=== PATIENT | female | born 1990 | race Asian ===

== ENCOUNTER → 2018-03-31 | Outpatient (CLI) | payer OTHER ==
[2013-12-31 13:35] VITALS: BP 124/75
[~2018-03-31] MED LIST: OXYC1TAB15 PO; PNV1TABL25 PO
--- NOTE | 2018-03-31 11:44 | RAD ---
Obstetrical ultrasound, 03/31/2018: HISTORY: Size/date discrepancy There is a single intrauterine fetus in a cephalic orientation. The biparietal diameter measures 6.1 cm compatible with a gestational age of 25 weeks. The femur length measurement suggests a gestational age of 23-24 weeks. The average gestational age based on all of the measurements is 24 weeks and 2 days yielding a sonographic EDC of 07/19/2018. Normal activity and heart motion were seen. The heart rate is 137 bpm. A four-chamber heart is evident. Fluid is seen in the bladder and stomach. The visualized portions of the spine and kidneys are unremarkable. A three-vessel umbilical cord is evident with a normal cord insertion site. A normal amount of amniotic fluid is present. The placenta lies posteriorly with no evidence of placenta previa. The cervix was not clearly visualized, however, the cervical length was estimated at 3.5 cm. IMPRESSION: Single viable intrauterine fetus of 24-25 weeks gestational age as described above. Electronically signed by: Vlad Nava MD (03/31/2018 11:40 AM) [facility]
== END | disposition home or self-care (01) ==
LOC: US 10:30
PROVIDERS: ATTEND Obstetrics & Gynecology
DX: O34.212 Maternal care for vertical scar from previous cesarean delivery (principal); O26.842 Uterine size-date discrepancy, second trimester; Z3A.25 25 weeks gestation of pregnancy
CPT/HCPCS: 76805

== ENCOUNTER 2020-03-21 03:28 | Emergency (ER) | payer BC, OTHER ==
[~2020-03-21] VITALS: Ht 160 cm; Wt 59.1 kg
[~2020-03-21 03:28] MED LIST changes: +IBUP-1027 PO
[2020-03-21 03:58] LABS: BASO % 1 % (0-3); EOS % 0 % (0-3); HEMATOCRIT 39.1 % (36.0-47.0); HEMOGLOBIN 12.7 g/dL (12.0-15.5); LYMPH # 2.6 x10^3/uL (1.0-4.8); LYMPH % 52 % (24-48); MEAN CORPUSCULAR HEMOGLOBIN 25 pg (25-35); MEAN CORPUSCULAR HGB CONC 32 g/dL (31-37); MEAN CORPUSCULAR VOLUME 77 fL (79-100); MONO # 0.5 x10^3/uL (0.0-1.1); MONO % 9 % (0-9); NEUT % 39 % (31-73); PLATELET COUNT 225 x10^3/uL (140-400); RED BLOOD COUNT 5.11 x10^6/uL (3.50-5.40); RED CELL DISTRIBUTION WIDTH 14.4 % (11.5-14.5); WHITE BLOOD COUNT 5.1 x10^3/uL (4.0-11.0)
[2020-03-21 04:05] LABS: CALCIUM 8.9 mg/dL (8.5-10.1); CREATININE 0.7 mg/dL (0.6-1.0); GFR 98.3; POTASSIUM 3.6 mmol/L (3.5-5.1)
[2020-03-21 04:11] LABS: ALBUMIN 3.5 g/dL (3.4-5.0); ALBUMIN/GLOBULIN RATIO 0.8 (1.0-1.7); TOTAL BILIRUBIN 0.2 mg/dL (0.2-1.0)
[2020-03-21] MEDS ORDERED: CONTRAST GIVEN. MC PRN (04:15)
[2020-03-21 04:16] LABS: BILIRUBIN,URINE NEGATIVE (NEG); CLARITY,URINE CLEAR; COLOR,URINE YELLOW; NITRITE,URINE NEGATIVE (NEG); PROTEIN,URINE NEGATIVE (NEG-TRACE); UROBILINOGEN,URINE 0.2 mg/dL (0.2 mg/dL)
--- NOTE | 2020-03-21 04:20 | PHYS DOC ---
Past Medical History Past Medical History: No Pertinent History Past Surgical History: Smoking Status: Never Smoker Alcohol Use: Occasionally General Adult EDM: Chief Complaint: ABDOMINAL PAIN HPI: HPI: Patient is a 29 year old female with no past medical history presents with chief complaint of abdominal pain. Patient states abdominal pain started around 010 0 hours. Patient pain is primarily left lower quadrant but pain is elicited palpating entire abdomen. Patient denies any nausea vomiting or diarrhea. She denies any urinary issues such as frequency urgency urination or vaginal discharge. Patient last menstrual period was 3 days ago. Review of Systems: Review of Systems: Constitutional: Denies fever or chills. [] Eyes: Denies change in visual acuity. [] HENT: Denies nasal congestion or sore throat. [] Respiratory: Denies cough or shortness of breath. [] Cardiovascular: Denies chest pain or edema. [] GI: Denies , nausea, vomiting, bloody stools or diarrhea. [Positive abdominal pain] : Denies dysuria. [] Musculoskeletal: Denies back pain or joint pain. [] Integument: Denies rash. [] Neurologic: Denies headache, focal weakness or sensory changes. [] Endocrine: Denies polyuria or polydipsia. [] Lymphatic: Denies swollen glands. [] Psychiatric: Denies depression or anxiety. [] Heart Score: Risk Factors: Risk Factors: DM, Current or recent (<one month) smoker, HTN, HLP, family history of CAD, obesity. Risk Scores: Score 0 - 3: 2.5% MACE over next 6 weeks - Discharge Home Score 4 - 6: 20.3% MACE over next 6 weeks - Admit for Clinical Observation Score 7 - 10: 72.7% MACE over next 6 weeks - Early Invasive Strategies Current Medications: Current Medications Medications (Trade) Dose Ordered Sig/Mohsen Start Time Stop Time Status Last Admin Dose Admin Info (CONTRAST GIVEN -- Rx MONITORING) 1 each PRN DAILY PRN 03/21/20 04:15 03/23/20 04:14 Iohexol (Omnipaque 300 Mg/ml) 75 ml 1X ONCE 03/21/20 04:30 03/21/20 04:31 Morphine Sulfate (Morphine Sulfate) 2 mg 1X ONCE 03/21/20 04:30 03/21/20 04:31 03/21/20 03:55 2 MG Sodium Chloride 1,000 ml @ 1,000 mls/hr 1X ONCE 03/21/20 04:30 03/21/20 05:29 03/21/20 03:55 1,000 MLS/HR Allergies: Allergies: Allergies Coded Allergies Type Severity Reaction Last Updated Verified No Known Drug Allergies 12/30/13 No Physical Exam: PE: Constitutional: Well developed, well nourished, no acute distress, non-toxic appearance. [] HENT: Normocephalic, atraumatic, bilateral external ears normal, oropharynx moist, no oral exudates, nose normal. [] Eyes: PERRLA, EOMI, conjunctiva normal, no discharge. [] Neck: Normal range of motion, no tenderness, supple, no stridor. [] Cardiovascular:Heart rate regular rhythm, no murmur [] Lungs & Thorax: Bilateral breath sounds clear to auscultation [] Abdomen: Bowel sounds normal, soft, tenderness to palpation multiple quadrants. No tenderness to palpation right lower quadrant Skin: Warm, dry, no erythema, no rash. [] Back: No tenderness, no CVA tenderness. [] Extremities: No tenderness, no cyanosis, no clubbing, ROM intact, no edema. [] Neurologic: Alert and oriented X 3, normal motor function, normal sensory function, no focal deficits noted. [] Psychologic: Affect normal, judgement normal, mood normal. [] Current Patient Data: Labs: Laboratory Tests Test 03/21/20 03:45 03/21/20 04:11 White Blood Count 5.1 x10^3/uL (4.0-11.0) Red Blood Count 5.11 x10^6/uL (3.50-5.40) Hemoglobin 12.7 g/dL (12.0-15.5) Hematocrit 39.1 % (36.0-47.0) Mean Corpuscular Volume 77 fL (79-100) L Mean Corpuscular Hemoglobin 25 pg (25-35) Mean Corpuscular Hemoglobin Concent 32 g/dL (31-37) Red Cell Distribution Width 14.4 % (11.5-14.5) Platelet Count 225 x10^3/uL (140-400) Neutrophils (%) (Auto) 39 % (31-73) Lymphocytes (%) (Auto) 52 % (24-48) H Monocytes (%) (Auto) 9 % (0-9) Eosinophils (%) (Auto) 0 % (0-3) Basophils (%) (Auto) 1 % (0-3) Neutrophils # (Auto) 2.0 x10^3/uL (1.8-7.7) Lymphocytes # (Auto) 2.6 x10^3/uL (1.0-4.8) Monocytes # (Auto) 0.5 x10^3/uL (0.0-1.1) Eosinophils # (Auto) 0.0 x10^3/uL (0.0-0.7) Basophils # (Auto) 0.0 x10^3/uL (0.0-0.2) Sodium Level 137 mmol/L (136-145) Potassium Level 3.6 mmol/L (3.5-5.1) Chloride Level 103 mmol/L (98-107) Carbon Dioxide Level 28 mmol/L (21-32) Anion Gap 6 (6-14) Blood Urea Nitrogen 6 mg/dL (7-20) L Creatinine 0.7 mg/dL (0.6-1.0) Estimated GFR (Cockcroft-Gault) 98.3 BUN/Creatinine Ratio 9 (6-20) Glucose Level 128 mg/dL (70-99) H Calcium Level 8.9 mg/dL (8.5-10.1) Total Bilirubin 0.2 mg/dL (0.2-1.0) Aspartate Amino Transferase (AST) 227 U/L (15-37) H Alanine Aminotransferase (ALT) 121 U/L (14-59) H Alkaline Phosphatase 52 U/L (46-116) Total Protein 8.0 g/dL (6.4-8.2) Albumin 3.5 g/dL (3.4-5.0) Albumin/Globulin Ratio 0.8 (1.0-1.7) L Lipase 140 U/L (73-393) POC Urine HCG, Qualitative Hcg negative (Negative) Laboratory Tests 03/21/20 03:45 Laboratory Tests 03/21/20 03:45 Vital Signs: Vital Signs Date Time Temp Pulse Resp B/P (MAP) Pulse Ox O2 Delivery O2 Flow Rate FiO2 03/21/20 03:55 98 03/21/20 03:30 98.2 89 20 126/85 (99) Room Air 98.2 EKG: EKG: [] Radiology/Procedures: Radiology/Procedures: [] Impression: FINDINGS: Abdominal aorta is not aneurysmal. Liver is low density which can be seen with fatty infiltration. No peripancreatic fluid collection. Calcification within the duodenum. Spleen unremarkable. Urinary bladder is partially distended. Right-sided hydronephrosis and hydroureter without a definite radiopaque obstructive ureter stone seen. Uterus is visualized. No periappendiceal inflammatory changes. No dilated loops of bowel to suggest obstruction. Degenerative changes of the spine. IMPRESSION: * No evidence of bowel obstruction or appendicitis. * Right-sided hydronephrosis and hydroureter without a definite radiopaque obstructive ureter stone seen at this time. Some possible causes would include a recently passed ureter stone or nonradiopaque stone. * Fatty infiltration of the liver Course & Med Decision Making: Course & Med Decision Making Patient was evaluated for chief complaint. Work-up consisted of laboratory analysis and radiologic imaging. Results reviewed and discussed with patient and significant other. Pain treated with morphine IV fluids. Pain improved post treatment. Radiologist impression hydronephrosis hydroureter no radiopaque stone identified. Patient's urine without signs of infection or RBCs. Patient be discharged home on Flomax and hydrocodone. Dragon Disclaimer: DragPicApp Disclaimer: This electronic medical record was generated, in whole or in part, using a voice recognition dictation system. Departure Departure Impression: Primary Impression: Abdominal pain Additional Impression: Hydronephrosis Disposition: 01 [place] HOME SELF CARE/HOMELESS Condition: STABLE Referrals: NO PCP (PCP) Patient Instructions: Abdominal Migraine, Hydronephrosis Scripts Tamsulosin Hcl (FLOMAX) 0.4 Mg Cap.er.24h 0.4 MG PO DAILY for 7 Days, #7 TAB Prov: LIZET NATION I DO 03/21/20 Hydrocodone/Apap 5-325 (NORCO 5-325 TABLET) 1 Each Tablet 1 TAB PO PRN Q6HRS PRN for PAIN, #14 TAB 0 Refills Prov: LIZET NATION I DO 03/21/20 LIZET NATION I DO Mar 21, 2020 04:20
[2020-03-21 04:23] LABS: AMORPHOUS SEDIMENT,UR PRESENT /HPF; BACTERIA,URINE 0 /HPF (0-FEW); RBC,URINE 0 /HPF (0-2); WBC,URINE RARE /HPF (0-4)
[2020-03-21] MEDS ORDERED: IV NORMAL SALINE 1000ML BAG 1,000 ML IV ONE (04:30)
[2020-03-21] MEDS ORDERED: MORPHINE SULFATE 2 MG/ML VIAL. IV ONE (04:30)
[2020-03-21] MEDS ORDERED: IOHEXOL 300 MG/ML 100ML VIAL. IV ONE (04:30)
--- NOTE | 2020-03-21 05:00 | RAD ---
INDICATION: Reason: abd pain / Spl. Instructions: / History: . COMPARISON: None. TECHNIQUE: Axial CT images obtained through the abdomen and pelvis with contrast. One or more of the following individualized dose reduction techniques were utilized for this examinat ion: 1. Automated exposure control; 2. Adjustment of the mA and/or kV according to patient size; 3 . Use of iterative reconstruction technique. FINDINGS: Abdominal aorta is not aneurysmal. Liver is low density which can be seen with fatty infiltration. No peripancreatic fluid collection. Calcification within the duodenum. Spleen unremarkable. Urinary bladder is partially distended. Right-sided hydronephrosis and hydroureter without a definite radiopaque obstructive ureter stone see n. Uterus is visualized. No periappendiceal inflammatory changes. No dilated loops of bowel to suggest obstruction. Degenerative changes of the spine. IMPRESSION: * No evidence of bowel obstruction or appendicitis. * Right-sided hydronephrosis and hydroureter without a definite radiopaque obstructive ureter stone seen at this time. Some possible causes would include a recently passed ureter stone or nonradiopaque stone. * Fatty infiltration of the liver Electronically signed by: Zachary Connolly MD (03/21/2020 4:58 AM) [id number]
[2020-03-21] MEDS ORDERED: TAMS0.4C97 PO (05:32)
[2020-03-21] MEDS ORDERED: HYDR-3164 PO (05:32)
[2020-03-21 06:00] VITALS: BP 96/56
== END 2020-03-21 06:03 | disposition home or self-care (01) ==
LOC: ER 03:28
DX: R10.32 Left lower quadrant pain (principal); N13.30 Unspecified hydronephrosis
CPT/HCPCS: 36415; 74177; 80053; 81001; 81025; 83690; 85025; 96361; 96374; 99285; J2270; J7030; Q9967

== ENCOUNTER 2020-04-14 10:43 | Emergency (ER) | payer BC, OTHER ==
[~2020-04-14] VITALS: Ht 160 cm; Wt 59.0 kg
[~2020-04-14 10:43] MED LIST changes: +HYDR-3164 PO; +TAMS0.4C97 PO
[2020-04-14 11:20] LABS: BARBITURATES NEG (NEG); BENZODIAZEPINES NEG (NEG); CANNABINOIDS NEG (NEG); COCAINE NEG (NEG); METHADONE NEG (NEG); OPIATES NEG (NEG); PHENCYCLIDINE NEG (NEG)
[2020-04-14 11:21] LABS: AMPHETAMINE/METHAMPHETAMINE NEG (NEG)
[2020-04-14 11:21] LABS: BASO % 1 % (0-3); EOS # 0.1 x10^3/uL (0.0-0.7); EOS % 1 % (0-3); HEMATOCRIT 38.9 % (36.0-47.0); HEMOGLOBIN 12.3 g/dL (12.0-15.5); LYMPH # 2.3 x10^3/uL (1.0-4.8); LYMPH % 47 % (24-48); MEAN CORPUSCULAR HEMOGLOBIN 24 pg (25-35); MEAN CORPUSCULAR HGB CONC 32 g/dL (31-37); MEAN CORPUSCULAR VOLUME 77 fL (79-100); MONO # 0.6 x10^3/uL (0.0-1.1); MONO % 12 % (0-9); NEUT # 1.9 x10^3/uL (1.8-7.7); NEUT % 39 % (31-73); PLATELET COUNT 223 x10^3/uL (140-400); RED BLOOD COUNT 5.08 x10^6/uL (3.50-5.40); RED CELL DISTRIBUTION WIDTH 14.3 % (11.5-14.5); WHITE BLOOD COUNT 4.9 x10^3/uL (4.0-11.0)
[2020-04-14 11:24] LABS: CREATININE 0.6 mg/dL (0.6-1.0); GFR 117.4; POTASSIUM 3.7 mmol/L (3.5-5.1)
[2020-04-14 11:27] LABS: BILIRUBIN,URINE NEGATIVE (NEG); CLARITY,URINE CLEAR; COLOR,URINE YELLOW; NITRITE,URINE NEGATIVE (NEG); PH,URINE 5.5 (<5.0-8.0); PROTEIN,URINE NEGATIVE (NEG-TRACE); UROBILINOGEN,URINE 0.2 mg/dL (0.2 mg/dL)
[2020-04-14 11:30] LABS: ALBUMIN 3.7 g/dL (3.4-5.0); DIRECT BILIRUBIN 0.2 mg/dL (0.0-0.2); TOTAL BILIRUBIN 0.5 mg/dL (0.2-1.0); TOTAL PROTEIN 7.9 g/dL (6.4-8.2)
[2020-04-14 11:36] LABS: BACTERIA,URINE FEW /HPF (0-FEW)
[2020-04-14 11:37] LABS: AMORPHOUS SEDIMENT,UR PRESENT /HPF
[2020-04-14 11:51] LABS: PLT ESTIMATE ADEQUATE (ADEQUATE)
[2020-04-14 11:52] LABS: HYPOCHROMIA MOD
--- NOTE | 2020-04-14 14:14 | RAD ---
US RENAL BILAT History: Reason: Pain assess for hydronephrosis / Spl. Instructions: / History: Comparison: CT March 21, 2020 Procedure: Transabdominal ultrasound images are obtained of the kidneys and bladder. Findings: Right kidney: measures 11.1 x 4.3 x 4.6 cm. Normal cortical echotexture. Corticomedullary differenti ation is preserved. No hydronephrosis. Left kidney: measures 9.0 x 4.6 x 4.5 cm. Normal cortical echotexture. Corticomedullary differentiat ion is preserved. No hydronephrosis. Urinary bladder: No urinary bladder wall thickening. Bilateral ureteral jets were identified. The IVC is normal caliber. The visualized abdominal aorta is normal caliber. Increased hepatic echotexture incidentally noted. IMPRESSION: 1. Unremarkable renal ultrasound. 2. Increased hepatic echotexture, may indicate steatosis. Electronically signed by: Alonzo Bush DO (04/14/2020 2:12 PM) [id number]
--- NOTE | 2020-04-14 14:24 | PHYS DOC ---
Past Medical History Past Medical History: No Pertinent History Past Surgical History: Smoking Status: Never Smoker Additional Information: PT HAS CHEWING TOBACCO IN HER MOUTH. Alcohol Use: Occasionally General Adult EDM: Chief Complaint: ABDOMINAL PAIN HPI: HPI: 29 yo F denies any past medical history presents to the ED with complaints of sharp, nonradiating bilateral lower abdominal pain that occurs after eating meals, seen here for same complaints in March 21. Denies any associated fever, chills, nausea, vomiting, diarrhea or constipation. Review of Systems: Review of Systems: Constitutional: Denies fever or chills. [] Eyes: Denies change in visual acuity. [] HENT: Denies nasal congestion or sore throat. [] Respiratory: Denies cough or shortness of breath. [] Cardiovascular: Denies chest pain or edema. [] GI: Denies nausea, vomiting, bloody stools or diarrhea. [] : Denies dysuria, hematuria, vaginal bleeding, abnormal vaginal discharge itching or odor Musculoskeletal: Denies back pain or joint pain. [] Integument: Denies rash. [] Neurologic: Denies headache, focal weakness or sensory changes. [] Endocrine: Denies polyuria or polydipsia. [] Lymphatic: Denies swollen glands. [] Psychiatric: Denies depression or anxiety. [] Heart Score: Risk Factors: Risk Factors: DM, Current or recent (<one month) smoker, HTN, HLP, family history of CAD, obesity. Risk Scores: Score 0 - 3: 2.5% MACE over next 6 weeks - Discharge Home Score 4 - 6: 20.3% MACE over next 6 weeks - Admit for Clinical Observation Score 7 - 10: 72.7% MACE over next 6 weeks - Early Invasive Strategies Allergies: Allergies: Allergies Coded Allergies Type Severity Reaction Last Updated Verified No Known Drug Allergies 12/30/13 No Physical Exam: PE: Constitutional: Well developed, well nourished, no acute distress/,., non-toxic appearance. HENT: Normocephalic, atraumatic, Eyes: EOMI, conjunctiva normal, no discharge. Neck: Normal range of motion, supple, Cardiovascular: S1/2 present, regular rhythm Lungs & Thorax: Speaking in full sentences, bilateral equal chest rise, no tachypnea or increased work of breathing Abdomen: soft, reports pain in LLQ/RLQ - no grimace with exam, no rovsing, no localized pain over mcburneys, no peritonitis or guarding Skin: Warm, dry, no erythema, no rash. Back: No tenderness, no CVA tenderness. [] Extremities: No tenderness, no cyanosis, no edema Neurologic: Alert and oriented X 3, normal motor function, normal sensory function, no focal deficits noted. [] Psychologic: Affect normal, judgement normal, mood normal. [] Pelvic: pt declines Current Patient Data: Labs: Laboratory Tests Test 04/14/20 10:51 04/14/20 10:54 04/14/20 11:03 Urine Collection Type Unknown Urine Color Yellow Urine Clarity Clear Urine pH 5.5 (<5.0-8.0) Urine Specific [place] 1.015 (1.000-1.030) Urine Protein Negative mg/dL (NEG-TRACE) Urine Glucose (UA) Negative mg/dL (NEG) Urine Ketones (Stick) Negative mg/dL (NEG) Urine Blood Negative (NEG) Urine Nitrite Negative (NEG) Urine Bilirubin Negative (NEG) Urine Urobilinogen Dipstick 0.2 mg/dL (0.2 mg/dL) Urine Leukocyte Esterase Negative (NEG) Urine RBC 1-2 /HPF (0-2) Urine WBC 1-4 /HPF (0-4) Urine Squamous Epithelial Cells Many /LPF Urine Amorphous Sediment Present /HPF Urine Bacteria Few /HPF (0-FEW) Urine Opiates Screen Neg (NEG) Urine Methadone Screen Neg (NEG) Urine Barbiturates Neg (NEG) Urine Phencyclidine Screen Neg (NEG) Urine Amphetamine/Methamphetamine Neg (NEG) Urine Benzodiazepines Screen Neg (NEG) Urine Cocaine Screen Neg (NEG) Urine Cannabinoids Screen Neg (NEG) Urine Ethyl Alcohol Pos (NEG) POC Urine HCG, Qualitative Hcg negative (Negative) White Blood Count 4.9 x10^3/uL (4.0-11.0) Red Blood Count 5.08 x10^6/uL (3.50-5.40) Hemoglobin 12.3 g/dL (12.0-15.5) Hematocrit 38.9 % (36.0-47.0) Mean Corpuscular Volume 77 fL (79-100) L Mean Corpuscular Hemoglobin 24 pg (25-35) L Mean Corpuscular Hemoglobin Concent 32 g/dL (31-37) Red Cell Distribution Width 14.3 % (11.5-14.5) Platelet Count 223 x10^3/uL (140-400) Neutrophils (%) (Auto) 39 % (31-73) Lymphocytes (%) (Auto) 47 % (24-48) Monocytes (%) (Auto) 12 % (0-9) H Eosinophils (%) (Auto) 1 % (0-3) Basophils (%) (Auto) 1 % (0-3) Neutrophils # (Auto) 1.9 x10^3/uL (1.8-7.7) Lymphocytes # (Auto) 2.3 x10^3/uL (1.0-4.8) Monocytes # (Auto) 0.6 x10^3/uL (0.0-1.1) Eosinophils # (Auto) 0.1 x10^3/uL (0.0-0.7) Basophils # (Auto) 0.0 x10^3/uL (0.0-0.2) Platelet Estimate Adequate (ADEQUATE) Hypochromasia Mod Sodium Level 139 mmol/L (136-145) Potassium Level 3.7 mmol/L (3.5-5.1) Chloride Level 101 mmol/L (98-107) Carbon Dioxide Level 27 mmol/L (21-32) Anion Gap 11 (6-14) Blood Urea Nitrogen 10 mg/dL (7-20) Creatinine 0.6 mg/dL (0.6-1.0) Estimated GFR (Cockcroft-Gault) 117.4 Glucose Level 103 mg/dL (70-99) H Calcium Level 9.0 mg/dL (8.5-10.1) Total Bilirubin 0.5 mg/dL (0.2-1.0) Direct Bilirubin 0.2 mg/dL (0.0-0.2) Aspartate Amino Transferase (AST) 191 U/L (15-37) H Alanine Aminotransferase (ALT) 111 U/L (14-59) H Alkaline Phosphatase 52 U/L (46-116) Total Protein 7.9 g/dL (6.4-8.2) Albumin 3.7 g/dL (3.4-5.0) Lipase 100 U/L (73-393) Ethyl Alcohol Level 156 mg/dL (0-10) H Laboratory Tests 04/14/20 11:03 Laboratory Tests 04/14/20 11:03 Vital Signs: Vital Signs Date Time Temp Pulse Resp B/P (MAP) Pulse Ox O2 Delivery O2 Flow Rate FiO2 04/14/20 10:55 98.2 95 16 144/94 (111) 95 Room Air 98.2 EKG: EKG: [] Radiology/Procedures: Radiology/Procedures: IMAGING REPORT Signed PATIENT: ME CHANCE ACCOUNT: [id number] : 1990 LOCATION: ER AGE: 29 SEX: F EXAM STATUS: REG ER ORD. PHYSICIAN: MARGARETH PATTERSON DO REASON: assess for hydronephrosis PROCEDURE: RENAL COMPLETE BILATERAL US RENAL BILAT History: Reason: Pain assess for hydronephrosis / Spl. Instructions: / History: Comparison: CT March 21, 2020 Procedure: Transabdominal ultrasound images are obtained of the kidneys and blad casimiro. Findings: Right kidney: measures 11.1 x 4.3 x 4.6 cm. Normal cortical echotexture. Corticomedullary differentiation is preserved. No hydronephrosis. Left kidney: measures 9.0 x 4.6 x 4.5 cm. Normal cortical echotexture. Corticomedullary differentiation is preserved. No hydronephrosis. Urinary bladder: No urinary bladder wall thickening. Bilateral ureteral jets were identified. The IVC is normal caliber. The visualized abdominal aorta is normal caliber. Increased hepatic echotexture incidentally noted. IMPRESSION: 1. Unremarkable renal ultrasound. 2. Increased hepatic echotexture, may indicate steatosis. Electronically signed by: Alonzo Garcia DO (04/14/2020 2:12 PM) [id number] DICTATED and SIGNED BY: ALONZO GARCIA DO DATE: 04/14/20 [id number] Course & Med Decision Making: Course & Med Decision Making Pertinent Labs and Imaging studies reviewed. (See chart for details) EMR reviewed- CT abd/pel with contrast on 03/21 showed right-sided hydronephrosis and hydroureter without a definite radiopaque obstructive ureter stone seen at this time. Some possible causes would include a recently passed ureter stone or nonradiopaque stone. Renal US today with no hydronephrosis. Labs show improving transaminitis. Patient intoxicated with normal lipase and no upper abdominal pain. Recommend OTC analgesia. Pt calm - tolerated lower abdominal palpation with no distress. I used bank appraiser services with rn, stepped outside. Patient denies any sexual assault or abuse. Reports she has a primary care physician and prefers to have a vaginal exam and Pap smear performed by her PCP (declines my recommendation). Will discharge home with strict ED return precautions were given for severe pain, heavy vaginal bleeding or syncope. Encouraged urgent outpatient follow-up with PMD and GI. Life-threatening processes were considered but are low suspicion at this time, given history, physical exam and ED workup. Pt was educated on all prescription medications and adverse effects. All patient's questions were answered and pt was stable at time of discharge. Life/limb-threatening differential includes but is not limited to, aortic dissection, aortic aneurysm, acute coronary syndrome, surgical abdomen (appendicitis, cholecystitis, ischemic bowel, strangulated hernia, etc), bowel obstruction or volvulus, bladder outlet obstruction, gastrointestinal bleeding, inflammatory bowel disease, peptic ulcer disease, ACS/CAD, sepsis, diverticular disease, ureterolithiasis, nephrolithiasis, ovarian or testicular torsion, ectopic , vaginal hemorrhage, or genitourinary infection. I spoken with the patient and her caregivers. I explained the patient's condition, diagnoses and treatment plan based on the information available to me at this time. I have answered the patient and her caregiver's questions and addressed any concerns. The patient and her caregivers have a good understanding of patient's diagnosis, condition and treatment plan as can be expected at this point. Vital signs have been stable. Patient's condition is stable and appropriate for discharge from the emergency department. Patient will pursue further outpatient evaluation with primary care physician or other designated or consulting physician as outlined in the discharge instructions. The patient and/or caregivers are agreeable to this plan of care and follow-up instructions have been explained in detail. The patient and/or caregivers have received these instructions in written form and have expressed an understanding of the discharge instructions. The patient and/or caregivers are aware that any significant change of condition or worsening of symptoms should prompt immediate return to this or the closest emergency department or call to 911. Zara Disclaimer: Zara Disclaimer: This electronic medical record was generated, in whole or in part, using a voice recognition dictation system. Departure Departure Impression: Primary Impression: Alcohol intoxication Additional Impression: Transaminitis Disposition: DC HOME SELF CARE/HOMELESS Condition: STABLE Referrals: NO PCP (PCP) FOLLOW UP WITH FAMILY MEDICINE: to recheck liver enzymes Family Medicine Address: [address] [facility] [address] [place] [address] Patient Instructions: Alcohol Intoxication Additional Instructions: FOLLOW UP WITH GASTROENTEROLOGY: Gastroenterology [facility] Address: [address] [place] [address] EMERGENCY DEPARTMENT GENERAL DISCHARGE INSTRUCTIONS Thank you for coming to [facility] Emergency Department (ED) today and trusting us with you care. We trust that you had a positive experience in our Emergency Department. If you wish to speak to the department management, you may call the Director at [phone]. YOUR FOLLOW UP INSTRUCTIONS ARE FOLLOWS: 1. Do you have a private Doctor? If you do not have a private doctor, please ask for a resource list of physicians or clinics that may be able to assist you with follow up care. 2. The Emergency Physicain has interpreted your x-rays. The X-Ray specialist will also review them. If there is a change in the findings, you will be notified in 48 hours when at all possible. 3. A lab test or culture has been done, your results will be reviewed and you will be notified if you need a change in treatment. ADDITIONAL INSTRUCTIONS AND INFORMATION: 1. Your care today has been supervised by a physician who is specially trained in emergency care. Many problems require more than one evaluation for a complete diagnosis and treatment. We recommend that you schedule your follow up appointment as recommended to ensure complete treatment of you illness or injury. If you are unable to obtain follow up care and continue to have a problem, or if your condition worsens, we recommend that you return to the ED. 2. We are not able to safely determine your condition over the phone nor are we able to give sound medical advice over the phone. For these safety reasons, if you call for medical advice we will ask you to come to the ED for further evaluation. 3. If you have any questions regarding these discharge instructions please call the ED at [phone]. SAFETY INFORMATION: In the interest of safety, wellness, and injury prevention; we encourage you to wear your sealbelt, if you smoke; quite smoking, and we encourage family to use a protective helmet for bicycling and other sporting events that present an increased risk for head injury. IF YOUR SYMPTOMS WORSEN OR NEW SYMPTOMS DEVELOP, OR YOU HAVE CONCERNS ABOUT YOUR CONDITION; OR IF YOUR CONDITION WORSENS WHILE YOU ARE WAITING FOR YOUR FOLLOW UP APPOINTMENT; EITHER CONTACT YOUR PRIMARY CARE DOCTOR, THE PHYSICIAN WHOSE NAME AND NUMBER YOU WERE GIVEN, OR RETURN TO THE ED IMMEDIATELY. [facility]ARGAR[facility] DO Apr 14, 2020 14:24
[2020-04-14] MEDS ORDERED: KETOROLAC 15 MG/ML VIAL. IVP ONE (14:30)
[2020-04-14 15:47] VITALS: BP 139/82
== END 2020-04-14 15:43 | disposition home or self-care (01) ==
LOC: ER 10:43
DX: F10.229 Alcohol dependence with intoxication, unspecified (principal); R74.01 Elevation of levels of liver transaminase levels; Z98.890 Other specified postprocedural states; Z87.891 Personal history of nicotine dependence
CPT/HCPCS: 36415; 76770; 80048; 80076; 80307; 81001; 81025; 83690; 85025; 96374; 99285; G0480; J1885